=== PATIENT | female | born 1965 | race Hispanic/Latino ===

== ENCOUNTER → 2018-01-06 | Outpatient (CLI) | payer OTHER | END | disposition home or self-care (01) | LOC: RAH 09:32 | PROVIDERS: ATTEND Internal Medicine Nephrology | DX: Z12.31 Encounter for screening mammogram for malignant neoplasm of breast (principal) | CPT/HCPCS: 77067 ==

== ENCOUNTER → 2019-02-11 | Outpatient (CLI) | payer OTHER | END | disposition home or self-care (01) | LOC: RAH 14:50 | PROVIDERS: ATTEND Obstetrics & Gynecology | DX: Z12.31 Encounter for screening mammogram for malignant neoplasm of breast (principal) | CPT/HCPCS: 77067 ==

== ENCOUNTER → 2019-08-05 | Outpatient (CLI) | payer OTHER | END | disposition home or self-care (01) | LOC: RAH 09:10 | PROVIDERS: ATTEND Internal Medicine Gastroenterology | DX: R13.10 Dysphagia, unspecified (principal) | CPT/HCPCS: 74240 ==

== ENCOUNTER → 2020-02-13 | Outpatient (CLI) | payer BC | END | disposition home or self-care (01) | LOC: RAH 10:18 | PROVIDERS: ATTEND Obstetrics & Gynecology | DX: Z12.31 Encounter for screening mammogram for malignant neoplasm of breast (principal); N64.89 Other specified disorders of breast | CPT/HCPCS: 77067 ==

== ENCOUNTER → 2022-05-19 | Outpatient (CLI) | payer BC | END | disposition home or self-care (01) | LOC: RAH 13:45 | PROVIDERS: ATTEND Obstetrics & Gynecology | DX: Z12.31 Encounter for screening mammogram for malignant neoplasm of breast (principal) | CPT/HCPCS: 77067 ==

== ENCOUNTER → 2023-05-21 | Outpatient (CLI) | payer BC | END | disposition home or self-care (01) | LOC: RAH 08:43 | PROVIDERS: ATTEND Obstetrics & Gynecology | DX: Z12.31 Encounter for screening mammogram for malignant neoplasm of breast (principal) | CPT/HCPCS: 77067 ==

== ENCOUNTER 2025-01-14 23:18 | Emergency (ER) | payer BC ==
[~2025-01-14] VITALS: Ht 152.4 cm; Wt 67.6 kg
--- NOTE | 2025-01-14 23:32 | ERN ---
General Chief Complaint: Nausea,Vomiting,Diarrhea Stated Complaint: N/V Time Seen by MD: 23:21 History of Present Illness Initial Comments Patient comes in with allergic reaction. About 2 hours ago she ate a turkey him that she bought formation [place] along with some soup that she made it home. Soon after she started getting very itchy in her scalp and neck and throat and torso. She is going to take a Benadryl but she started feeling nauseous and threw up several times. She also felt like she was having a bit of trouble and scratching in her throat. She did not take any meds and came here for evaluation. Patient reports a similar reaction to some below-knee in the remote past. She does have hypertension. Currently no stridor or any respiratory distress. Satting 100% on room air. Allergies: Coded Allergies: Penicillins (Unverified Allergy, Unknown, 01/14/25) Sulfa (Sulfonamide Antibiotics) (Unverified Allergy, Unknown, 01/14/25) naproxen (Unverified Allergy, Unknown, 01/14/25) tramadol (Unverified Allergy, Unknown, 01/14/25) Past Medical History Past Medical History: Hypertension Past Surgical History: BTL ROS Dictation Ten systems reviewed and negative except as noted in HPI Physical Exam Physical Exam Dictation GEN: non toxic, NAD HEENT: atrumatic, PERRL, EOMI, conjunctivae normal. No angioedema NECK: Soft supple nontender. No accessory muscle use. No stridor. Heart RRR, no murmurs Chest: No deformity Lungs: Lungs clear to auscultation Ab: Soft nondistended nontender Back: No midline step-offs. No gross deformity. No CVA tenderness SKIN: Patient having some resolving urticaria m/s: Moving all four extremities. No gross deformity Neuro: CN 2-12 intact. Moving all four extremities. Psych: Cooperative MDM Patient having allergic reaction with urticaria and nausea and vomiting. No respiratory distress. Satting 100%. No angioedema. We will give Benadryl Pepcid Solu-Medrol. Observe. Observe that improved in terms of her itching and urticaria. Continue Benadryl q.6 hours Prednisone for two more days Pepcid b.i.d. for two more days [id number] EpiPen ED Course Orders Procedure Category Date Status Time Diphenhydramine Hcl PHA 01/14/25 Complete (Benadryl Inj) 23:30 Famotidine 20mg Vial PHA 01/14/25 Complete (Pepcid 20mg Vial) 23:30 Methylprednisolone PHA 01/14/25 Complete Succ 125mg (Solu-Medr 23:30 Ondansetron 4mg Inj PHA 01/15/25 Complete (Zofran 4mg Inj) 00:00 Current Medications Medications (Trade) Dose Ordered Sig/[place] Route PRN Reason Start Time Stop Time Status Last Admin Dose Admin Diphenhydramine HCl (BENAdryl INJ) 50 mg ONCE ONCE IM 01/14/25 23:30 01/14/25 23:31 DC 01/14/25 23:50 Famotidine (Pepcid 20mg Vial) 20 mg ONCE ONCE IV 01/14/25 23:30 01/14/25 23:31 DC 01/14/25 23:50 Methylprednisolone Sodium Succinate (Solu-medROL 125MG) 125 mg ONCE ONCE IVP 01/14/25 23:30 01/14/25 23:31 DC 01/14/25 23:50 Ondansetron HCl (zoFRAN 4MG INJ) 4 mg ONCE ONCE IVP 01/15/25 00:00 01/15/25 00:01 DC 01/14/25 23:52 Vital Signs Date Time Temp Pulse Resp B/P (MAP) Pulse Ox O2 Delivery O2 Flow Rate FiO2 01/14/25 23:31 98.1 90 18 147/58 99 Room Air* 0 21 01/14/25 23:19 98.1 93 20 124/72 98 Room Air DX & DISP Disposition: Discharge Departure Impression: Primary Impression: Allergic reaction Condition: Improved Scripts Epinephrine (Epipen) 0.3 Mg/0.3 Ml Auto.injct 0.3 ML IM AD, #0.3 ML 0 Refills Prov: JOHANNA MAGAÑA MD 01/15/25 Prednisone (Prednisone) 50 Mg Tablet 1 TAB PO DAILY for 2 Days, #2 TAB 0 Refills Prov: JOHANNA MAGAÑA MD 01/15/25 Additional Instructions: Benadryl two tablets every 6 hours talk her to that is three days for allergic reaction Pepcid 20 mg [id number] every 12 hours for the next three days allergic reaction Prednisone although once daily is the 3rd two more days for allergic reaction EpiPen. Have on hand at all times for any severe or life-threatening allergic reaction, difficulty breathing, of note or any other concerns Follow up with primary care physician Return for any recurrent or worsening symptoms Referrals: RUDY MITTAL (PCP) JOHANNA MAGAÑA MD Jan 14, 2025 23:32
[2025-01-14] MEDS: FAMOTIDINE 20MG VIAL IV ONE (23:50)
[2025-01-15] MEDS ORDERED: EPIN0.3P2 IM (00:21)
[2025-01-15] MEDS ORDERED: PRED50TA2 PO (00:21)
[2025-01-15 00:50] VITALS: BP 128/70; PULSE 72; RESP 18; TEMP 98.5; O2SAT 99
== END 2025-01-15 00:54 | disposition home or self-care (01) ==
LOC: EDH 23:18
DX: T78.40XA Allergy, unspecified, initial encounter (principal); I10 Essential (primary) hypertension; Z88.0 Allergy status to penicillin; Z88.2 Allergy status to sulfonamides; Z88.5 Allergy status to narcotic agent; Z88.6 Allergy status to analgesic agent; Z98.51 Tubal ligation status; X58.XXXA Exposure to other specified factors, initial encounter
CPT/HCPCS: 99284; 96374; 96375; 96372; J2919; J1200; J1308; J2405